=== PATIENT | male | born 1985 | race Hispanic/Latino ===

== ENCOUNTER 2022-03-28 17:58 | Emergency (ER) | payer OTHER ==
[~2022-03-28] VITALS: Ht 167.6 cm; Wt 74.8 kg
[2022-03-28 18:04] VITALS: BP 148/100
[2022-03-28] MEDS ORDERED: HYDR12.54 PO (18:40)
[2022-03-29] MEDS ORDERED: THIA100T75 PO (05:04)
[2022-03-29] MEDS ORDERED: LIB25 PO (05:06)
== END 2022-03-28 18:45 | disposition home or self-care (01) ==
LOC: EDH 17:58
DX: I10 Essential (primary) hypertension (principal); Z90.89 Acquired absence of other organs

== ENCOUNTER 2022-03-29 02:51 | Emergency (ER) | payer OTHER ==
[~2022-03-29] VITALS: Ht 195.6 cm; Wt 74.8 kg
[~2022-03-29 02:51] MED LIST: HYDR12.54 PO
[2022-03-29 03:52] VITALS: BP 144/94
[2022-03-29 04:10] LABS: EOSINOPHILS % (AUTO) 1.2 % (0.0-8.0); HEMATOCRIT 36.4 % (42-54); LYMPHOCYTES % (AUTO) 24.6 % (21.0-51.0); MEAN CORPUSCULAR HEMOGLOBIN 29.7 pg (27.0-33.0); MEAN CORPUSCULAR HGB CONC 34.3 g/dL (32.0-36.0); MEAN CORPUSCULAR VOLUME 86.5 fL (79-99); MONOCYTES % (AUTO) 11.5 % (3.0-13.0); NEUTROPHILS % (AUTO) 62.1 % (40.0-77.0); PLATELET COUNT (AUTO) 135 K/uL (130-400); RED BLOOD CELL COUNT(AUTO) 4.21 MIL/uL (4.50-6.20); RED CELL DISTRIBUTION WIDTH 14.3 % (11.0-15.5); WHITE BLOOD COUNT (AUTO) 3.4 K/uL (4.8-10.8)
[2022-03-29] MEDS: MAGNESIUM 2GM PREMIX 50ML 50 ML IV SCH ×2 (04:15→04:25)
[2022-03-29 04:18] LABS: CREATININE 0.7 mg/dL (0.5-1.5); POTASSIUM 3.2 mmol/L (3.5-5.1)
[2022-03-29 04:22] LABS: ALBUMIN 3.9 g/dL (3.5-5.0); TOTAL PROTEIN, SERUM 8.2 g/dL (6.0-8.3)
[2022-03-29] MEDS ORDERED: MAGNESIUM 2GM PREMIX 50ML 50 ML IV SCH (04:30)
[2022-03-29] MEDS ORDERED: LORAZEPAM 2 MG/ML 1 ML VIAL IVP ONE ×2 (04:30)
[2022-03-29] MEDS ORDERED: THIAMINE HCL 100 MG/ML 2ML VIAL IVP SCH (04:30)
[2022-03-29] MEDS ORDERED: POTASSIUM BICARB/CIT AC 25 MEQ TABLET.EFF PO ONE (05:00)
[2022-03-29] MEDS ORDERED: THIA100T75 PO (05:04)
[2022-03-29] MEDS ORDERED: LIB25 PO (05:06)
== END 2022-03-29 06:25 | disposition home or self-care (01) ==
LOC: EDH 02:51
DX: I10 Essential (primary) hypertension (principal); F10.10 Alcohol abuse, uncomplicated; Z90.89 Acquired absence of other organs
CPT/HCPCS: 99284; 96365; 96375; 80053; 85025; 36415; J3475; J3411; J2060

== ENCOUNTER 2024-03-28 16:14 | Emergency (ER) | payer SELFPAY ==
[~2024-03-28] VITALS: Ht 167.6 cm; Wt 74.8 kg
[~2024-03-28 16:14] MED LIST changes: +CHLO25CA6 PO; +THIA100T75 PO
--- NOTE | 2024-03-28 16:38 | ERN ---
ED Note History of Present Illness Stated Complaint: NOT FEELING GOOD Time Seen by MD: 16:18 Dictation: PATIENT IS A 38-YEAR-OLD MALE WHO COMES IN STATING HE DOES NOT FEEL GOOD AND WISHES TO BE TREATED FOR ALCOHOL ABUSE. HE STATES I THINK I AM AN ALCOHOLIC AND I DRINK THESE ALCOHOLIC BEVERAGES WITH CAFFEINE NM AND THEY MAKE ME BLOATED AND I DO NOT WANNA BE DRINKING ANYMORE. NO SUICIDAL OR HOMICIDAL IDEATION. HE STATES HE HAS ALREADY BEEN TO [facility] IN THE PAST FOR ALCOHOL ABUSE AND RELAPSED AFTER BEING TREATED IN 2022. Allergies: Coded Allergies: No Known Drug Allergies (Unverified Allergy, Unknown, 03/28/22) Home Meds Active Scripts Chlordiazepoxide HCl (Librium 25 mg Cap) 25 Mg Cap, 25 MG PO Q4HPRN PRN for ALCOHOL WITHDRAWAL SYMPTOMS, #30 CAP 0 Refills Prov:BEN WILSON [employer]NA[employer] 03/28/24 Chlordiazepoxide HCl (Librium 25 mg Cap) 25 Mg Cap, 25 MG PO TID for 5 Days, #15 CAP Prov:SASCHA CRABTREE MD 03/29/22 Thiamine Mononitrate (Vitamin B-1) 100 Mg Tablet, 100 MG PO DAILY, #30 TAB Prov:SASCHA CRABTREE MD 03/29/22 Hydrochlorothiazide (Hydrochlorothiazide) 12.5 Mg Tablet, 12.5 MG PO DAILY for 30 Days, #30 TAB Prov:RANDY NOE MD 03/28/22 Past Medical History Past Medical History: Anxiety, Hypertension Surgical History: Appendectomy Social History: ETOH, Lives with family RN Note Reviewed/Agreed w/PFSH: Yes Review of System Dictation CONSTITUTIONAL: NEGATIVE EXCEPT FOR HPI WEAKNESS HEAD/FACE: NEGATIVE EXCEPT FOR HPI EENT: NEGATIVE EXCEPT FOR HPI RESPIRATORY: NEGATIVE EXCEPT FOR HPI GASTROINTESTINAL/ABDOMINAL: NEGATIVE EXCEPT FOR HPI NAUSEA GENITOURINARY: NEGATIVE EXCEPT FOR HPI MUSCULOSKELETAL: NEGATIVE EXCEPT FOR HPI INTEGUMENTARY: NEGATIVE EXCEPT FOR HPI NEUROLOGICAL/PSYCH: NEGATIVE EXCEPT FOR HPI HEMATOLOGIC/LYMPHATIC: NEGATIVE EXCEPT FOR HPI ALL SYSTEMS NEGATIVE, EXCEPT NOTED ABOVE. 13 POINT REVIEW OF SYSTEMS ASSESSED AND ALL NEGATIVE EXCEPT FOR ABOVE. Initial Vital Sign VS Vital Signs Date Time Temp Pulse Resp B/P (MAP) Pulse Ox O2 Delivery O2 Flow Rate FiO2 03/28/24 16:41 99.0 127 20 129/90 98 Room Air 0 03/28/24 19:55 21 Physical Exam Dictation VITAL SIGNS REVIEWED GENERAL APPEARANCE: ALERT, ORIENTED X 3, NO ACUTE DISTRESS, WELL DEVELOPED, NOURISHED. HEAD AND FACE: NON-TRAUMATIC. EYES: PERRL, PINK CONJUNCTIVAS, EYELID NO TRAUMA, ANTERIOR CHAMBER WITH ARCUS SENILIS. EARS: PINNAS INTACT AND NO SIGNS OF TRAUMA OR ERYTHEMA EAR CANALS CLEAR AND NO DISCHARGE TM NO ERYTHEMA NOSE: NO DISCHARGE, NO BLEEDING. OROPHARYNX: MOUTH NORMAL, TONGUE PINK, PHARYNX CLEAR,NO ERYTHEMA, TONSILS NO EXUDATES, NO ABSCESSES NOTED, MUCOUS MEMBRANE MOIST NECK: SUPPLE, NON-TENDER, NO THYROMEGALY, NO MASSES, NO JVD, NO BRUITS BREAST:DEFERRED CHEST:NO TENDERNESS, NO CREPITUS, NO PARADOXICAL MOVEMENT, NO RETRACTIONS LUNGS:CLEAR, WELL-VENTILATED, SYMMETRIC, NO RALES, NO WHEEZING, NO RHONCHI, NO STRIDOR, GOOD BREATH SOUNDS BILATERALLY HEART: REGULAR RATE, REGULAR RHYTHM, NO MURMUR, NO GALLOPS VASCULAR: NO PERIPHERAL EDEMA, ABDOMEN: SOFT, POSITIVE BOWEL SOUNDS, NONDISTENDED, NO GUARDING, NONTENDER, NO REBOUND, NO MASSES NO HEPATOMEGALY, NO SPLENOMEGALY, NO MILLER'S SIGN, NO HERNIAS. RECTAL: DEFERRED GENITAL: DEFERRED NEUROLOGICAL: NORMAL SPEECH, MOTOR FUNCTION INTACT, SENSORY FUNCTION INTACT DENIES SUICIDAL OR HOMICIDAL MUSCULOSKELETAL: NECK NONTENDER, FULL RANGE OF MOTION, BACK NONTENDER, FULL RANGE OF MOTION, EXTREMITIES: NONTENDER, FULL RANGE OF MOTION SKIN: COLOR PINK, DRY, NO TURGOR, NO RASH, NO LACERATIONS, NO ABRASIONS, NO CONTUSIONS. LYMPHATIC: DEFERRED Results (Laboratory/Radiology) Laboratory/Radiology Laboratory Tests Test 03/28/24 16:53 03/28/24 18:23 White Blood Count 10.7 K/uL (4.8-10.8) Red Blood Count 4.73 MIL/uL (4.50-6.20) Hemoglobin 13.8 g/dL (14.0-18.0) L Hematocrit 38.3 % (42-54) L Mean Corpuscular Volume 81.0 fL (79-99) Mean Corpuscular Hemoglobin 29.2 pg (27.0-33.0) Mean Corpuscular Hemoglobin Concent 36.0 g/dL (32.0-36.0) Red Cell Distribution Width 11.9 % (11.0-15.5) Platelet Count 212 K/uL (130-400) Mean Platelet Volume 8.6 fL (7.5-10.5) Immature Granulocyte % (Auto) 0.5 % (0-1) Neutrophils (%) (Auto) 68.7 % (40.0-77.0) Lymphocytes (%) (Auto) 28.3 % (21.0-51.0) Monocytes (%) (Auto) 1.8 % (3.0-13.0) L Eosinophils (%) (Auto) 0.4 % (0.0-8.0) Basophils (%) (Auto) 0.3 % (0.0-5.0) Neutrophils # (Auto) 7.3 K/uL (1.8-7.7) Lymphocytes # (Auto) 3.0 K/uL (1.0-4.8) Monocytes # (Auto) 0.2 K/uL (0.1-1.0) Eosinophils # (Auto) 0.04 K/uL (0.00-0.70) Basophils # (Auto) 0.03 K/uL (0.00-0.20) Absolute Immature Granulocyte (auto 0.05 K/uL (0-1) Nucleated Red Blood Cells 0.2 % (0.0-0.19) H Sodium Level 135 mmol/L (136-145) L Potassium Level 3.5 mmol/L (3.5-5.1) Chloride Level 91 mmol/L (101-111) L Carbon Dioxide Level 30 mmol/L (21-32) Blood Urea Nitrogen 12 mg/dL (7-18) Creatinine 1.3 mg/dL (0.5-1.3) Glomerular Filtration Rate Calc 73 mL/min (>90) Random Glucose 145 mg/dL (70-105) H Total Calcium 9.4 mg/dL (8.5-10.1) Salicylates Level < 2.8 mg/dL (2.8-20.0) L Acetaminophen Level < 1 mcg/mL (10-29) L Serum Alcohol < 3 mg/dL (0-10) Urine Color YELLOW (YELLOW) Urine Appearance CLEAR (CLEAR) Urine pH 6.0 (5.0-8.0) Urine Specific [place] 1.012 (1.001-1.031) Urine Protein 70 mg/dL (NEGATIVE) H Urine Glucose (UA) NEGATIVE mg/dL (NEGATIVE) Urine Ketones 5 mg/dL (NEGATIVE) H Urine Occult Blood NEGATIVE (NEGATIVE) Urine Nitrate NEGATIVE (NEGATIVE) Urine Bilirubin NEGATIVE mg/dL (NEGATIVE) Urine Urobilinogen 0.2 mg/dL (0.2-1.0) Urine Leukocyte Esterase NEGATIVE Steve/uL Urine RBC 0-1 /HPF (0-1) Urine WBC 2-5 /HPF (0-1) H Urine Squamous Epithelial Cells RARE /HPF (0-2) Urine Bacteria RARE /HPF (None Seen) Urine Hyaline Casts 0-1 /LPF (0-1 /LPF) Urine Opiates Screen NEGATIVE (NEGATIVE) Urine Barbiturates Screen NEGATIVE (NEGATIVE) Urine Phencyclidine Screen NEGATIVE (NEGATIVE) Urine Amphetamines Screen NEGATIVE (NEGATIVE) Urine Benzodiazepines Screen NEGATIVE (NEGATIVE) Urine Cocaine Screen NEGATIVE (NEGATIVE) Urine Marijuana (THC) Screen NEGATIVE (NEGATIVE) Labs Reviewed?: Yes ED Course ED Course Orders Procedure Category Date Status Time Ondansetron Odt 4mg PHA 03/28/24 Complete Tab (Zofran 4mg Odt) 17:00 Drug Screen Urine LAB 03/28/24 Complete 16:35 Cbc With Differential LAB 03/28/24 Complete 16:35 Alcohol, Blood LAB 03/28/24 Complete 16:35 Salicylate LAB 03/28/24 Complete 16:35 Acetaminophen LAB 03/28/24 Complete 16:35 Urinalysis Profile LAB 03/28/24 Complete 16:35 Basic Metabolic Panel LAB 03/28/24 Complete 16:35 Lorazepam 1 Mg PHA 03/28/24 Complete (Ativan) 19:30 Current Medications Medications (Trade) Dose Ordered Sig/Juan C Route PRN Reason Start Time Stop Time Status Last Admin Dose Admin Lorazepam (AtiVAN) 1 mg ONCE ONCE PO 03/28/24 19:30 03/28/24 19:31 DC 03/28/24 19:32 Ondansetron HCl (zoFRAN 4MG ODT) 4 mg ONCE ONCE SL 03/28/24 17:00 03/28/24 17:01 DC 03/28/24 17:59 Vital Signs Date Time Temp Pulse Resp B/P (MAP) Pulse Ox O2 Delivery O2 Flow Rate FiO2 03/28/24 19:55 98.2 100 18 140/82 98 Room Air* 0 21 03/28/24 16:41 99.0 127 20 129/90 98 Room Air 0 1920, PATIENT WILL BE DISCHARGED HOME WITH CHLORDIAZEPOXIDE AND INFORMATION TO CALL [facility]. HE REMAINS WITHOUT THOUGHTS OF SUICIDAL OR HOMICIDAL IDEATION SAYS HE CAN COMPLY WITH DISCHARGE INFORMATION Medical Decision Making MDM MDM: DIFFERENTIAL DIAGNOSIS: ALCOHOL WITHDRAWAL, DRUG WITHDRAWAL, ELECTROLYTE IMBALANCE/DEHYDRATION/ANXIETY RATIONALE: TESTS CONSIDERED AND ORDERED SECONDARY TO SHARED DECISION MAKING INCLUDE: LABS PREVIOUS OUTSIDE RECORDS REVIEWED: OLD ER VISITS. RISK OF COMPLICATION AND/OR MORBIDITY OR MORTALITY OF PATIENT MANAGEMENT: NONE MEDICATIONS-PER MEDICATION RECONCILIATION NEED FOR HOSPITALIZATION: PATIENT DOES NOT MEET CRITERIA FOR HOSPITALIZATION. NO NEED FOR EMERGENCY MAJOR/MINOR SURGERY: NO THERE ARE NO SOCIAL CONCERNS WITH THIS PATIENT. PRESCRIPTION DRUG MANAGEMENT CHLORDIAZEPOXIDE PRESCRIPTIONS WILL INCLUDE SYMPTOMATIC CARE PATIENT'S PRIOR EXTERNAL MEDICAL RECORDS FROM OTHER ER VISITS WERE REVIEWED BY ME INDICATED. PRIOR TESTING AND RESULTS FROM PREVIOUS VISITS WERE REVIEWED. PRIOR TESTS WERE TAKEN INTO ACCOUNT WITH MEDICAL DECISION MAKING AND RESOURCE UTILIZATION, INDEPENDENT HISTORIAN/HISTORIANS WERE USED TO OBTAIN COMPLETE MEDICAL HISTORY. I INDEPENDENTLY INTERPRETED THE TEST THAT WERE PERFORMED, RESULTS WERE REVIEWED BY ME AND CONSIDERED FINDINGS ON RADIOLOGY IF ORDERED. MEDICAL MANAGEMENT AND EXAMINATION INTERPRETATION DISCUSSIONS WERE HAD BY ME WITH OTHER QUALIFIED HEALTHCARE PROFESSIONALS INDICATED FOR THE PATIENT'S CARE. DX & DISP Disposition: Discharge Departure Impression: Primary Impression: Chronic alcohol abuse Additional Impressions: Hyperglycemia, Nausea & vomiting Condition: Stable Scripts Chlordiazepoxide HCl (Librium 25 mg Cap) 25 Mg Cap 25 MG PO Q4HPRN PRN for ALCOHOL WITHDRAWAL SYMPTOMS, #30 CAP 0 Refills Prov: BEN WILSON [employer] MANAGER 03/28/24 Additional Instructions: Follow-up with primary care provider in 1 to 2 days. Take medications as directed here in the emergency room. Okay to continue home medications unless otherwise discussed during your visit in the emergency room today. Return to your nearest emergency room if symptoms worsen or if there is no improvement. Call 911 if you need immediate assistance. Take Tylenol or Motrin [id number] as needed and if no contraindications are present. Increase oral hydration. A wound culture or urine culture was ordered here in the emergency room department please follow-up with primary care provider and advise them to get repeat ports from our facility. If you had any Claudio wrap/splints that were applied here, please do not remove them until you see your primary care or specialty. Take Librium as directed every4 hours for withdrawal symptoms. Contact [facility] the next 1-2 days for follow up for treatment. Referrals: NONE (PCP) Time of Disposition: 19:23 I have reviewed the case, and I agree with, Diagnosis and Plan BEN WILSON NP Mar 28, 2024 16:38 SANDEEP GOMEZ DO Mar 29, 2024 17:08
[2024-03-28 17:03] LABS: BASOPHILS # (AUTO) 0.03 K/uL (0.00-0.20); BASOPHILS % (AUTO) 0.3 % (0.0-5.0); EOSINOPHILS # (AUTO) 0.04 K/uL (0.00-0.70); EOSINOPHILS % (AUTO) 0.4 % (0.0-8.0); HEMATOCRIT 38.3 % (42-54); IMMATURE GRANULOCYTE ABSOLUTE 0.05 K/uL (0-1); LYMPHOCYTES % (AUTO) 28.3 % (21.0-51.0); MEAN CORPUSCULAR HEMOGLOBIN 29.2 pg (27.0-33.0); MONOCYTES # (AUTO) 0.2 K/uL (0.1-1.0); MONOCYTES % (AUTO) 1.8 % (3.0-13.0); NEUTROPHILS # (AUTO) 7.3 K/uL (1.8-7.7); NEUTROPHILS % (AUTO) 68.7 % (40.0-77.0); NUCLEATED RED BLOOD CELLS 0.2 % (0.0-0.19); PLATELET COUNT (AUTO) 212 K/uL (130-400); RED BLOOD CELL COUNT(AUTO) 4.73 MIL/uL (4.50-6.20); RED CELL DISTRIBUTION WIDTH 11.9 % (11.0-15.5); WHITE BLOOD COUNT (AUTO) 10.7 K/uL (4.8-10.8)
[2024-03-28 17:14] LABS: CARBON DIOXIDE 30 mmol/L (21-32); CHLORIDE 91 mmol/L (101-111); CREATININE 1.3 mg/dL (0.5-1.3); GLOMERULAR FILTR. RATE CALC 73 mL/min (>90); GLUCOSE,RANDOM 145 mg/dL (70-105); POTASSIUM 3.5 mmol/L (3.5-5.1); SODIUM SERUM 135 mmol/L (136-145); UREA NITROGEN, BLOOD 12 mg/dL (7-18)
[2024-03-28 17:17] LABS: ALCOHOL, BLOOD < 3 mg/dL (0-10)
[2024-03-28 17:21] LABS: ACETAMINOPHEN < 1 mcg/mL (10-29); SALICYLATE < 2.8 mg/dL (2.8-20.0)
[2024-03-28] MEDS: ondanSETRON ODT 4MG TAB SL ONE (17:59)
[2024-03-28 18:33] LABS: APPEARANCE,URINE CLEAR (CLEAR); BILIRUBIN,URINE NEGATIVE (NEGATIVE); COLOR,URINE YELLOW (YELLOW); GLUCOSE, URINE (UA) NEGATIVE (NEGATIVE); KETONES,URINE 5 mg/dL (NEGATIVE); LEUKOCYTE ESTERASE ,URINE NEGATIVE Leu/uL (NEGATIVE); NITRATE,URINE NEGATIVE (NEGATIVE); OCCULT BLOOD,URINE NEGATIVE (NEGATIVE); PROTEIN,URINE 70 mg/dL (NEGATIVE); UROBILINOGEN,URINE 0.2 mg/dL (0.2-1.0)
[2024-03-28 18:37] LABS: ADD UA MICROSCOPIC YES
[2024-03-28 18:41] LABS: AMPHET/METH SCREEN,URINE NEGATIVE (NEGATIVE); BARBITURATE SCREEN, URINE NEGATIVE (NEGATIVE); BENZODIAZEPINES SCREEN,URINE NEGATIVE (NEGATIVE); CANNABINOID SCREEN,URINE NEGATIVE (NEGATIVE); COCAINE SCREEN,URINE NEGATIVE (NEGATIVE); OPIATE SCREEN,URINE NEGATIVE (NEGATIVE); PHENCYCLIDINE SCREEN,URINE NEGATIVE (NEGATIVE)
[2024-03-28 18:42] LABS: BACTERIA,URINE RARE /HPF (None Seen); MUCUS,URINE FEW LPF (None Seen); RBC,URINE 0-1 /HPF (0-1); SQUAMOUS EPITHELIAL CELL,UR RARE /HPF (0-2)
[2024-03-28 18:45] LABS: HYALINE CASTS, URINE 0-1 /LPF (0-1 /LPF)
--- NOTE | 2024-03-28 18:56 | NUR ---
PT STATES " I AM HERE BECAUSE I AM IN [place] FROM ETOH, LAST DRINK WAS YESTERDAY AT 1900"
[2024-03-28] MEDS ORDERED: CHLO25CA6 PO (19:25)
[2024-03-28] MEDS: LORazepam 1 MG TABLET PO ONE (19:32)
[2024-03-28 19:55] VITALS: BP 140/82; PULSE 100; RESP 18; TEMP 98.2; O2SAT 98
== END 2024-03-28 20:00 | disposition home or self-care (01) ==
LOC: EDH 16:14
DX: F10.10 Alcohol abuse, uncomplicated (principal); R73.9 Hyperglycemia, unspecified; R11.2 Nausea with vomiting, unspecified; F41.9 Anxiety disorder, unspecified; I10 Essential (primary) hypertension; Z79.899 Other long term (current) drug therapy; Z90.49 Acquired absence of other specified parts of digestive tract
CPT/HCPCS: 99283; 80048; 80305; 85025; 36415; 81001; G0481

== ENCOUNTER 2024-08-20 12:49 | Emergency (ER) | payer SELFPAY ==
[~2024-08-20] VITALS: Ht 167.6 cm; Wt 65.8 kg
--- NOTE | 2024-08-20 13:01 | ERN ---
General Stated Complaint: ALCOHOL WITHDRAWALS,CHEST PAIN Time Seen by MD: 12:52 History of Present Illness Initial Comments 38M, hx alcohol withdrawal & ETOH abuse, presents for alcohol withdrawal symptoms. Patient drinks heavily daily. Last drink about 18 hours ago. Patient reports headache, vomiting, dizziness, anxiety, and tremors. Patient reports a history of alcohol withdrawal seizures and delirium. Allergies: Coded Allergies: No Known Drug Allergies (Unverified Allergy, Unknown, 03/28/22) Home Meds Active Scripts Chlordiazepoxide HCl (Librium 25 mg Cap) 25 Mg Cap, 25 MG PO Q4HPRN PRN for ALCOHOL WITHDRAWAL SYMPTOMS, #30 CAP 0 Refills Prov:BEN WILSON ORDER CALLER 03/28/24 Chlordiazepoxide HCl (Librium 25 mg Cap) 25 Mg Cap, 25 MG PO TID for 5 Days, #15 CAP Prov:SASCHA CRABTREE MD 03/29/22 Thiamine Mononitrate (Vitamin B-1) 100 Mg Tablet, 100 MG PO DAILY, #30 TAB Prov:SASCHA CRABTREE MD 03/29/22 Hydrochlorothiazide (Hydrochlorothiazide) 12.5 Mg Tablet, 12.5 MG PO DAILY for 30 Days, #30 TAB Prov:RANDY NOE MD 03/28/22 Past Medical History Past Medical History: Alcoholism, Anxiety, Hypertension, Seizure Past Surgical History: Appendectomy Social History Social History: ETOH, Lives with family ROS Dictation CONSTITUTIONAL: dizziness, tremors HEAD/FACE: No signs of trauma. EENT: No eye pain, no blurred vision, no tearing, no double vision, no ear pain, no ear discharge, no nose pain, no nasal congestion, no throat pain, no throat swelling, no mouth pain. RESPIRATORY: No cough, no orthopnea, no SOB, no stridor, no wheezing. CARDIOVASCULAR: No chest pain, no edema, no palpitations, no syncope. GASTROINTESTINAL/ABDOMINAL: No abdominal pain, no constipation, no diarrhea, no nausea, no vomiting. GENITOURINARY: No abnormal discharge, no dysuria, no frequent urination, no hematuria. No complaints of pain in the genitals. MUSCULOSKELETAL: No back pain, no gout, no joint pain, no joint swelling, no muscle pain, no muscle stiffness, no neck pain. INTEGUMENTARY: No change in color, no change in hair/nails, no dryness, no lesion, no lumps, no rash. NEUROLOGICAL/PSYCH: No anxiety, not depressed, no emotional problem, no headache, no numbness, no pre-existing deficit, no history of seizures, no tremors, no weakness. HEMATOLOGIC/LYMPHATIC: Not anemic, no history of blood clots, no apparent bleeding, no bruising, glands not swollen. All Systems Negative, Except as Noted. Physical Exam Physical Exam Dictation VITAL SIGNS: Reviewed. GENERAL APPEARANCE: Alert, oriented x3, tremors, anxiety HEAD AND FACE: Non-traumatic. EYES: PERRL, pink conjunctivas, eyelid no trauma, anterior chamber clear. EARS: Pinnas intact and no signs of trauma or erythema. Ear canals clear and no discharge. TMs no erythema. NOSE: No discharge, no bleeding. OROPHARYNX: Mouth normal, teeth no caries, tongue pink. Pharynx clear, no erythema. Tonsils no exudates, no abscesses noted. Mucous membrane moist. NECK: Supple, non-tender, no thyromegaly, no masses, no JVD, no bruits. BREAST: Deferred. CHEST: No tenderness, no crepitus, no paradoxical movement, no retractions. LUNGS: Clear, well-ventilated, symmetric, no rales, no wheezing, no rhonchi, no stridor, good breath sounds bilaterally. HEART: Regular rate, regular rhythm, no murmur, no gallops. VASCULAR: No peripheral edema. ABDOMEN: Soft, positive bowel sounds, nondistended, no guarding, nontender, no rebound, no masses no hepatomegaly, no splenomegaly, no Ortiz's sign, no hernias. RECTAL: Deferred. GENITAL: Deferred. NEUROLOGICAL: Normal speech, gross motor function intact, gross sensory function intact. MUSCULOSKELETAL: tremors EXTREMITIES: Nontender, full range of motion. SKIN: Color pink, dry, no turgor, no rash, no lacerations, no abrasions, no contusions. LYMPHATICS: Deferred. Results Laboratory and Microbiology Lab and Micro Result Laboratory Tests Test 08/20/24 13:41 08/20/24 14:35 White Blood Count 5.6 K/uL (4.8-10.8) Red Blood Count 3.14 MIL/uL (4.50-6.20) L Hemoglobin 10.0 g/dL (14.0-18.0) L Hematocrit 28.1 % (42-54) L Mean Corpuscular Volume 89.5 fL (79-99) Mean Corpuscular Hemoglobin 31.8 pg (27.0-33.0) Mean Corpuscular Hemoglobin Concent 35.6 g/dL (32.0-36.0) Red Cell Distribution Width 17.7 % (11.0-15.5) H Platelet Count 118 K/uL (130-400) L Mean Platelet Volume 10.1 fL (7.5-10.5) Immature Granulocyte % (Auto) 0.4 % (0-1) Neutrophils (%) (Auto) 75.3 % (40.0-77.0) Lymphocytes (%) (Auto) 19.2 % (21.0-51.0) L Monocytes (%) (Auto) 4.5 % (3.0-13.0) Eosinophils (%) (Auto) 0.2 % (0.0-8.0) Basophils (%) (Auto) 0.4 % (0.0-5.0) Neutrophils # (Auto) 4.2 K/uL (1.8-7.7) Lymphocytes # (Auto) 1.1 K/uL (1.0-4.8) Monocytes # (Auto) 0.3 K/uL (0.1-1.0) Eosinophils # (Auto) 0.01 K/uL (0.00-0.70) Basophils # (Auto) 0.02 K/uL (0.00-0.20) Absolute Immature Granulocyte (auto 0.02 K/uL (0-1) Nucleated Red Blood Cells 0.0 % (0.0-0.19) Sodium Level 132 mmol/L (136-145) L Potassium Level 3.6 mmol/L (3.5-5.1) Chloride Level 93 mmol/L (101-111) L Carbon Dioxide Level 28 mmol/L (21-32) Blood Urea Nitrogen 7 mg/dL (7-18) Creatinine 0.7 mg/dL (0.5-1.3) Glomerular Filtration Rate Calc 122 mL/min (>90) Random Glucose 108 mg/dL (70-105) H Total Calcium 9.1 mg/dL (8.5-10.1) Magnesium Level 1.50 mg/dL (1.80-2.40) L Total Creatine Kinase 108 U/L (21-232) Troponin I High Sensitivity 4.3 ng/L (4-75) Serum Alcohol < 3 mg/dL (0-10) Urine Opiates Screen NEGATIVE (NEGATIVE) Urine Barbiturates Screen NEGATIVE (NEGATIVE) Urine Phencyclidine Screen NEGATIVE (NEGATIVE) Urine Amphetamines Screen NEGATIVE (NEGATIVE) Urine Benzodiazepines Screen NEGATIVE (NEGATIVE) Urine Cocaine Screen NEGATIVE (NEGATIVE) Urine Marijuana (THC) Screen NEGATIVE (NEGATIVE) MDM CC: Alcohol withdrawal symptoms Comorbidities: Alcohol abuse with withdrawal Differential includes alcohol withdrawal Vital signs stable Clinical exam patient has mild tremors but GCS 15 no signs of seizures or delirium CBC normal metabolic panel shows mild dehydration otherwise normal alcohol level normal UDS negative Patient received banana bag, two doses of Valium Re-evaluation CIWA less than eight, can be managed as an outpatient we will DC. ED Course Orders Procedure Category Date Status Time Alcohol, Blood LAB 08/20/24 Complete 12:52 Cardiac Panel LAB 08/20/24 Complete 12:52 Cbc With Differential LAB 08/20/24 Complete 12:52 Basic Metabolic Panel LAB 08/20/24 Complete 12:52 Magnesium LAB 08/20/24 Complete 12:52 Lactated Ringers PHA 08/20/24 Complete 1000ml (Lactated 13:00 Diazepam 5 Mg/Ml 2 Ml PHA 08/20/24 Complete Syg (Valium 5 Mg/M 13:00 Chlordiazepoxide Hcl PHA 08/20/24 Complete 25 Mg Cap (Librium 13:00 M.V.I. Iv [Adult] PHA 08/21/24 Complete (M.V.I. Iv [Adult])... 09:00 Drug Screen Urine LAB 08/20/24 Complete 12:52 Use The [facility] CPOE 08/20/24 Transmitted Assmt. Tool 14:49 Diazepam 5 Mg/Ml 2 Ml PHA 08/20/24 Complete Syg (Valium 5 Mg/M 15:00 Current Medications Medications (Trade) Dose Ordered Sig/Juan C Route PRN Reason Start Time Stop Time Status Last Admin Dose Admin Chlordiazepoxide HCl (LIBrium 25 MG CAP) 25 mg ONCE ONCE PO 08/20/24 13:00 08/20/24 13:01 DC 08/20/24 13:56 Diazepam (VALium 5 MG/ML 2 ML SYG) 5 mg ONCE ONCE IM 08/20/24 13:00 08/20/24 13:01 DC 08/20/24 13:57 Diazepam (VALium 5 MG/ML 2 ML SYG) 5 mg ONCE ONCE IVP 08/20/24 15:00 08/20/24 15:01 DC 08/20/24 15:02 Lactated Ringer's 1,000 ml @ 0 mls/hr ONCE ONCE IV 08/20/24 13:00 08/20/24 13:01 DC 08/20/24 14:11 Multivitamins/ Minerals 10 ml/ Folic Acid 1 mg/ Thiamine HCl 100 mg/Sodium Chloride 1,010 ml @ 150 mls/hr DAILY IV 08/21/24 09:00 08/20/24 16:01 DC 08/20/24 13:57 Vital Signs Date Time Temp Pulse Resp B/P (MAP) Pulse Ox O2 Delivery O2 Flow Rate FiO2 08/20/24 15:49 97.7 86 18 126/85 98 Room Air* 0 21 08/20/24 15:08 97.5 90 16 128/86 98 Room Air* 0 21 08/20/24 14:39 98.1 78 18 133/98 98 Room Air* 0 21 DX & DISP Disposition: Discharge Departure Impression: Primary Impression: Chronic alcohol abuse Additional Impression: Alcohol withdrawal Condition: Stable Additional Instructions: Your symptoms are consistent with alcohol withdrawal. Please return to the emergency department as needed. Referrals: SELF,REFERRAL (PCP) SANDEEP GOMEZ DO August 20, 2024 13:01
[2024-08-20 13:49] LABS: BASOPHILS # (AUTO) 0.02 K/uL (0.00-0.20); BASOPHILS % (AUTO) 0.4 % (0.0-5.0); EOSINOPHILS # (AUTO) 0.01 K/uL (0.00-0.70); EOSINOPHILS % (AUTO) 0.2 % (0.0-8.0); HEMATOCRIT 28.1 % (42-54); IMMATURE GRANULOCYTE ABSOLUTE 0.02 K/uL (0-1); LYMPHOCYTES # (AUTO) 1.1 K/uL (1.0-4.8); LYMPHOCYTES % (AUTO) 19.2 % (21.0-51.0); MEAN CORPUSCULAR HEMOGLOBIN 31.8 pg (27.0-33.0); MEAN CORPUSCULAR HGB CONC 35.6 g/dL (32.0-36.0); MEAN CORPUSCULAR VOLUME 89.5 fL (79-99); MONOCYTES # (AUTO) 0.3 K/uL (0.1-1.0); MONOCYTES % (AUTO) 4.5 % (3.0-13.0); NEUTROPHILS # (AUTO) 4.2 K/uL (1.8-7.7); NEUTROPHILS % (AUTO) 75.3 % (40.0-77.0); PLATELET COUNT (AUTO) 118 K/uL (130-400); RED BLOOD CELL COUNT(AUTO) 3.14 MIL/uL (4.50-6.20); RED CELL DISTRIBUTION WIDTH 17.7 % (11.0-15.5); WHITE BLOOD COUNT (AUTO) 5.6 K/uL (4.8-10.8)
[2024-08-20] MEDS: chlordiazePOXIDE HCL 25 MG CAP PO ONE (13:56)
[2024-08-20] MEDS: M.V.I. IV [ADULT] 10 ML, FOLic ACID 5 MG/ML VIAL 1 MG, THIAMINE HCL 100 MG in 0.9%NACL ... IV SCH (13:57)
[2024-08-20] MEDS: diazePAM 5 MG/ML 2 ML SYG IM ONE (13:57)
[2024-08-20] MEDS ORDERED: 0.9%NACL 1000ML 1,000 ML IV ONE (13:57)
[2024-08-20 14:00] LABS: CARBON DIOXIDE 28 mmol/L (21-32); CHLORIDE 93 mmol/L (101-111); CREATININE 0.7 mg/dL (0.5-1.3); GLOMERULAR FILTR. RATE CALC 122 mL/min (>90); GLUCOSE,RANDOM 108 mg/dL (70-105); POTASSIUM 3.6 mmol/L (3.5-5.1); SODIUM SERUM 132 mmol/L (136-145); UREA NITROGEN, BLOOD 7 mg/dL (7-18)
[2024-08-20 14:07] LABS: CREATINE KINASE, TOTAL 108 U/L (21-232)
[2024-08-20 14:08] LABS: ALCOHOL, BLOOD < 3 mg/dL (0-10)
[2024-08-20] MEDS: LACTATED RINGERS 1000ML 1,000 ML IV ONE (14:11)
[2024-08-20] MEDS: diazePAM 5 MG/ML 2 ML SYG IVP ONE (15:02)
[2024-08-20 15:09] LABS: AMPHET/METH SCREEN,URINE NEGATIVE (NEGATIVE); BARBITURATE SCREEN, URINE NEGATIVE (NEGATIVE); BENZODIAZEPINES SCREEN,URINE NEGATIVE (NEGATIVE); CANNABINOID SCREEN,URINE NEGATIVE (NEGATIVE); COCAINE SCREEN,URINE NEGATIVE (NEGATIVE); OPIATE SCREEN,URINE NEGATIVE (NEGATIVE); PHENCYCLIDINE SCREEN,URINE NEGATIVE (NEGATIVE)
[2024-08-20 15:49] VITALS: BP 126/85; PULSE 86; RESP 18; TEMP 97.7; O2SAT 98
== END 2024-08-20 16:01 | disposition home or self-care (01) ==
LOC: EDH 12:49
DX: F10.139 Alcohol abuse with withdrawal, unspecified (principal); Z90.49 Acquired absence of other specified parts of digestive tract; Y90.0 Blood alcohol level of less than 20 mg/100 ml
CPT/HCPCS: 99284; 96365; 96375; 82550; 83735; 84484; 80048; 80305; 85025; 36415; 96372; J7030; J3360 ×2; J3411; J3490